=== PATIENT | female | born 1990 | race Caucasian/White ===

== ENCOUNTER → 2018-02-22 | Outpatient (CLI) | payer OTHER | END | disposition home or self-care (01) | LOC: US 02-19 14:00 | DX: I73.00 Raynaud's syndrome without gangrene (principal); M79.602 Pain in left arm; M79.605 Pain in left leg; M79.604 Pain in right leg ==

== ENCOUNTER 2023-03-03 15:38 | Emergency (ER) | payer BC ==
[~2023-03-03] VITALS: Ht 165.1 cm; Wt 59.0 kg
[2023-03-03] MEDS ORDERED: ONDANSETRON4 MG SL (16:22)
[2023-03-03] MEDS ORDERED: CLINDAMYCIN HC300 MG PO (16:22)
== END 2023-03-03 16:33 | disposition home or self-care (01) ==
LOC: ED 15:38
DX: K08.89 Other specified disorders of teeth and supporting structures (principal); R68.84 Jaw pain; H92.02 Otalgia, left ear; Z88.1 Allergy status to other antibiotic agents